=== PATIENT | female | born 1990 | race African-American/Black ===

== ENCOUNTER 2016-07-30 10:13 | Emergency (ER) | payer OTHER ==
[~2016-07-30] VITALS: Ht 165.1 cm; Wt 62.2 kg
[~2016-07-30 10:13] MED LIST: ADVAIR 100/501 DISK IH; ADVAIR 500/501 DISK IH; ALBUTEROL SULF8.5 GM IH; ALBUTEROL17 GM IH; AMOXICILLIN500 MG PO; AUGMENTIN875 MG NG; BENTYL20 MG PO; CIPRO500 MG PO; CITRATE OF MAG296 ML PO; CLARITIN10 MG PO; DEPO-PROVER150 MG/ML IM; DOXYCYCLINE HY100 MG PO; ERGOCALCIF50000 UNIT PO; FLAGYL500 MG PO; IRON325 MG PO; LOMOTIL TABLET1 EACH PO; LYRICA50 MG PO; LYRICA75 MG PO; MEDROXYPRO150 MG/1 M IM; MELOXICAM15 MG PO; MOTRIN800 MG PO; NAPROSYN500 MG PO; NOHOMEMEDS; PERCOCET 5/31 TABLET PO; PERI-COLACE TA1 EACH PO; PHENERGAN12.5 M1 PO; PRENATAL 1-1 T1 EACH PO; PRENATAL1 EACH PO; PRILOSEC10 MG PO; PROAIR HFA8.5 GM IH; PROMETHAZINE HC25 M1 PO; PROTONIX40 MG PO; PULMICORT FLE180 MCG IH; REGLAN5 MG PO; SINGULAIR10 MG PO; TORADOL10 MG PO; TRAMADOL HCL50 MG PO; VALTREX1000 MG PO; VITAMIN D50000 UNI4 PO; WELLBUTRIN75 MG PO; ZITHROMAX500 MG PO; ZOFRAN ODT4 MG PO
[2016-07-30] MEDS ORDERED: NORCO 5/3251 TABLET PO (13:56)
[2016-07-30] MEDS ORDERED: MOTRIN600 MG PO (13:56)
[2016-07-30] MEDS ORDERED: AMOXICILLIN500 M1 PO (13:56)
[2016-07-30 14:17] VITALS: BP 121/67
== END 2016-07-30 14:34 | disposition home or self-care (01) ==
LOC: EME 10:13
DX: K08.89 Other specified disorders of teeth and supporting structures (principal)
CPT/HCPCS: 99281; 99283

== ENCOUNTER 2016-09-10 10:16 | Emergency (ER) | payer OTHER ==
[~2016-09-10] VITALS: Ht 165.1 cm; Wt 57.7 kg
[~2016-09-10 10:16] MED LIST changes: +AMOXICILLIN500 M1 PO; +MOTRIN600 MG PO; +NORCO 5/3251 TABLET PO
[2016-09-10 11:21] LABS: HEMATOCRIT 41.1 % (36.0-46.0); MCH 27.7 PG (29.0-34.0); MCHC 33.3 G/DL (30.0-36.0); MEAN PLAT.VOLUME 11.8 uM^3 (9.5-12.4); PLATELET COUNT 171 K/uL (156-360); RBC DIS.WIDTH-CV 13.3 % (11.8-14.6); RBC DIS.WIDTH-SD 39.5 % (39-53); RED BLOOD COUNT 4.95 M/uL (3.80-5.20); WHITE BLOOD COUNT 5.8 K/uL (4.1-10.2)
[2016-09-10 11:24] LABS: CHLORIDE 109 mEq/L (99-109); POTASSIUM 3.9 mEq/L (3.7-5.4); SODIUM 139 mEq/L (136-147)
[2016-09-10 11:26] LABS: GLUCOSE 113 mg/dL (70-99)
[2016-09-10 11:27] LABS: ANION GAP 10 MEQ/L (2-14)
[2016-09-10 11:30] LABS: ALKALINE PHOSPHATASE 64 IU/L (3-129); GFR ESTIMATE (CALCULATED) > 59 mL/min/
[2016-09-10 11:31] LABS: UREA NITROGEN (BUN) 10 mg/dL (9-23)
[2016-09-10 11:38] LABS: QUANTITATIVE HCG < 4.0 MIU/ML
[2016-09-10 12:25] LABS: LIPASE 11 U/L (1.0-51.0)
[2016-09-10] MEDS ORDERED: FLAGYL500 MG PO (13:45)
[2016-09-10] MEDS ORDERED: ZOFRAN ODT4 MG PO (13:45)
[2016-09-10] MEDS ORDERED: CIPRO500 MG PO (13:45)
[2016-09-10 13:57] VITALS: BP 120/76
== END 2016-09-10 13:59 | disposition home or self-care (01) ==
LOC: EME 10:16 → EXP 10:16
DX: R10.33 Periumbilical pain (principal); J45.909 Unspecified asthma, uncomplicated; K51.90 Ulcerative colitis, unspecified, without complications; M79.7 Fibromyalgia
CPT/HCPCS: 74177; 80053; 81003; 83690; 84702; 85027; 99281; 99285; J1885; J2405; J7030